=== PATIENT | male | born 1945 | race Hispanic/Latino ===

== ENCOUNTER → 2024-11-09 | Outpatient (CLI) | payer MEDICARE, OTHER ==
[~2024-11-09] MED LIST: AMLO-258 PO; ASPI-556 PO; ATOR40TA69 PO; BACL10TA PO; BRIM5DRO OU; DAPA10TA PO; FAMO20TA8 PO; FINA5TAB41 PO; FURO20TA4 PO; INSU100V12 SQ; IOHEXOL-350 75 ML VIAL IV ONE; KETO10 PO; LATA2.5D14 OP; LISI40TA9 PO; METO-391 PO; POTA15TA11 PO; SEMA1PEN3 SQ; TAMS0.4C32 PO
--- NOTE | 2024-11-09 11:01 | HMCIMG ---
CT ABDOMEN/PELVIS W/CONTRAST HISTORY: Disorder of kidney and ureter COMPARISON: None TECHNIQUE: Multiple sequential axial images of the abdomen and pelvis were obtained from the dome of the diaphragm through symphysis pubis. Patient was given 75 cc of Omnipaque through intravenous route. Oral contrast was given. FINDINGS: No pleural effusion is seen bilaterally. There is no evidence of parenchymal disease or pulmonary nodule of the visualized lower lungs. Degenerative changes of the thoracolumbar spine are present. The heart is not enlarged. Compression fracture is seen of the width 40% loss of height worse from study. The liver, spleen, adrenal glands and pancreas are unremarkable. There is no evidence of hydronephrosis bilaterally. There is left anterior renal mass measuring 5.6 x 4.5 cm consistent with renal cell carcinoma. There are left renal cysts with the largest on the left measuring 2.4 cm. No evidence of renal stone is seen. Fecal material is seen in the colon. There are normal size retroperitoneal and mesenteric lymph nodes. No ascites is seen. Atherosclerotic changes are present. No bowel obstruction is seen Pelvic sidewalls are symmetric bilaterally. Bladder is poorly distended with Doss catheter. IMPRESSION: 1. There is left anterior renal mass measuring 5.6 x 4.5 cm consistent with renal cell carcinoma. This is slightly increase in size from previous study. CT was performed with one or more following dose reduction techniques: automated exposure control, adjustment of the mA and kv according to patient's size, or use of a iterative reconstruction technique.
== END | disposition home or self-care (01) ==
LOC: RAH 09:16
PROVIDERS: ATTEND Internal Medicine
DX: N28.89 Other specified disorders of kidney and ureter (principal); K56.41 Fecal impaction; N32.89 Other specified disorders of bladder; I70.90 Unspecified atherosclerosis; M47.815 Spondylosis without myelopathy or radiculopathy, thoracolumbar region
CPT/HCPCS: 74177; Q9967